=== PATIENT | male | born 1950 | race Caucasian/White ===

== ENCOUNTER 2016-09-30 08:55 | Day surgery (SDC) | payer MEDICARE, MEDICAID ==
[~2016-09-30 08:55] MED LIST: Bupivacaine 0.5% 50 ML MDV ONE; Lidocaine 1% with EPINEPHrine 1:100,000 50 ML MDV ONE; Midazolam 1 MG/ML 2 ML SDV ONE; Propofol 200 MG/20 ML SDV ONE; fentaNYL 100 MCG/2 ML SDV ONE
[2016-09-30] MEDS ORDERED: Lactated Ringers 1,000 ML IV SCH (09:00)
[2016-09-30] MEDS ORDERED: Acetaminophen/HYDROcodone 325-5 MG Tab PO PRN (11:39)
[2016-09-30 11:56] VITALS: BP 166/81
--- NOTE | 2016-10-01 07:41 | OR ---
DATE OF PROCEDURE: 09/30/2016 PREOPERATIVE DIAGNOSIS: Malignant melanoma in situ, posterior neck, deep margin involved. POSTOPERATIVE DIAGNOSIS: Malignant melanoma in situ, posterior neck, deep margin involved. PROCEDURE: Excision of malignant melanoma in situ, posterior neck, with 7-mm margins. ANESTHESIA: IV anesthesia with monitored anesthesia care. INDICATION: This 66-year-old white male, in [place], underwent excision of a pigmented lesion on the back of his neck. This returned malignant melanoma in situ with the deep margin involved. He is referred for an excision of this with between 0.5 and 1 cm margins. I counseled him for this including risks and alternatives, and he gave his informed consent to proceed. DESCRIPTION OF PROCEDURE: The patient was placed prone on the operating room table. IV anesthesia was administered by Anesthesia Service. His posterior neck, upper back, and shoulders were prepped and draped in the usual sterile fashion. Time-out was held. A marking pen was used to iram the planned excision. We marked 0.5 cm margins and the area was then anesthetized with lidocaine 1% with epinephrine in a 50:50 mix with 0.5% Marcaine. We then excised outside the 5-mm margins drawn, probably about 7 mm, and carried this deep all the way to the fascia. The fascia was excised with the specimen, it was then sent to the laboratory. The incision was irrigated with sterile water and suctioned dry. Hemostasis was obtained with electrocautery. The deep tissues were closed with a running stitch of 3-0 Vicryl and 3-0 Prolene was used to approximate the skin in a running fashion. A sterile dressing was applied. He was placed supine and brought from the operating room, having tolerated the procedure well, in good condition. Alex Zeepda MD /[id number]
== END 2016-09-30 12:20 | disposition home or self-care (01) ==
LOC: JP.SDS 08:55
PROVIDERS: ATTEND Surgery
DX: D03.4 Melanoma in situ of scalp and neck (principal)
CPT/HCPCS: 11621; 12041; A9270; J2250; J2704; J3010; J7120; 88305; 88342

== ENCOUNTER 2016-11-20 10:11 | Day surgery (SDC) | payer MEDICARE, OTHER ==
[2016-11-20] MEDS ORDERED: Lactated Ringers 1,000 ML IV SCH (10:45)
[2016-11-20] MEDS ORDERED: Midazolam 1 MG/ML 2 ML SDV ONE (12:59)
[2016-11-20] MEDS ORDERED: fentaNYL 100 MCG/2 ML SDV ONE (12:59)
[2016-11-20] MEDS ORDERED: Propofol 200 MG/20 ML SDV ONE (12:59)
[2016-11-20 14:26] VITALS: BP 138/74
--- NOTE | 2016-11-21 07:30 | OR ---
DATE OF PROCEDURE: 11/20/2016 PREOPERATIVE DIAGNOSIS: Colon cancer screening. POSTOPERATIVE DIAGNOSIS: Diverticulosis, small colon polyp 15 cm from the anal verge. PROCEDURE: Colonoscopy to the cecum with biopsy resection of small colon polyp , 15 cm from SURGEON: Alex Zepeda MD. the anal verge. ANESTHESIA: IV anesthesia with monitored anesthesia care. INDICATIONS: This 66-year-old white male is referred for a colonoscopy for colon cancer screening. He says his last colonoscopic exam was done 18 years ago. I counseled him for the procedure including risks and alternatives, and he gave his informed consent to proceed. DESCRIPTION OF PROCEDURE: The patient was placed in the left lateral decubitus position. IV anesthesia was administered by the Anesthesia Service. Time-out was held. A rectal exam was performed, which was unremarkable. The flexible video Olympus colonoscope was introduced through his anus, up his rectum, and out his colon all the way to the cecum. En route, we saw a few scattered left-sided diverticula. There was no bleeding or inflammation associated with any of them. Once the cecum was reached, the scope was slowly withdrawn examining the mucosa throughout. No additional mucosal abnormalities were noted until we reached 15 cm from the anal verge. Here, a small polyp was seen, which was removed with the biopsy forceps. The scope was retroflexed in the rectum with the distal rectum appearing unremarkable. The scope was straightened and removed. He tolerated the procedure well. Alex Zepeda MD /[id number]
== END 2016-11-20 14:45 | disposition home or self-care (01) ==
LOC: JP.SDS 10:11
PROVIDERS: ATTEND Surgery
DX: Z12.11 Encounter for screening for malignant neoplasm of colon (principal); K63.5 Polyp of colon; K57.30 Diverticulosis of large intestine without perforation or abscess without bleeding; K21.9 Gastro-esophageal reflux disease without esophagitis; E66.9 Obesity, unspecified; F17.210 Nicotine dependence, cigarettes, uncomplicated
CPT/HCPCS: 45380; J2250; J2704; J3010; J7120; 88305

== ENCOUNTER 2023-03-13 15:06 | Emergency (ER) | payer OTHER ==
[2023-03-13 21:04] VITALS: BP 155/80; PULSE 69
== END 2023-03-13 21:45 | disposition home or self-care (01) ==
LOC: JP.ED 15:06
DX: R60.0 Localized edema (principal); E78.00 Pure hypercholesterolemia, unspecified; I10 Essential (primary) hypertension; F17.210 Nicotine dependence, cigarettes, uncomplicated; Z79.899 Other long term (current) drug therapy
CPT/HCPCS: 99283

== ENCOUNTER 2023-06-09 14:00 | Emergency (ER) | payer OTHER ==
[2023-06-09 14:27] VITALS: BP 118/57; PULSE 75
== END 2023-06-09 16:23 | disposition home or self-care (01) ==
LOC: JP.ED 14:00
DX: S93.402A Sprain of unspecified ligament of left ankle, initial encounter (principal); I10 Essential (primary) hypertension; E78.00 Pure hypercholesterolemia, unspecified; Z87.891 Personal history of nicotine dependence; Z79.899 Other long term (current) drug therapy; W00.0XXA Fall on same level due to ice and snow, initial encounter
CPT/HCPCS: 73590-26-LT; 73590-LT; 73610-26-LT; 73610-LT; 73660-26-T5; 73660-T5; 99283